=== PATIENT | female | born 1995 | race Caucasian/White ===

== ENCOUNTER 2019-01-15 11:00 | Emergency (ER) | payer MEDICAID, OTHER ==
[~2019-01-15] VITALS: Ht 157.5 cm; Wt 65.8 kg
[2019-01-15 11:08] VITALS: BP 100/67
[2019-01-15 11:10] VITALS: BP 99/62
[2019-01-15] MEDS ORDERED: LACTATED RINGERS 1,000 ML IV ONE (11:11)
[2019-01-15 11:12] VITALS: BP 111/66
--- NOTE | 2019-01-15 11:18 | ED Syncope ---
General Stated Complaint: SYNCOPAL EPISODE; 7 MO PREG. History of Present Illness Date Seen by Provider: Jan 15, 2019 Time Seen by Provider: 11:05 Initial Comments The patient presents to ER by private conveyance EMS from the clinic across the street where she had a syncopal episode while they were drawing blood. Her initial blood pressure was 92 systolic and after her single episode which lasted less than 30 seconds the clinic reported it was about 75 blood pressure. She's had a syncopal episode earlier in the and when she followed up with her OB provider in [place], [place] she was told that it was the opposite of preeclampsia. They Encouraged her to drink more fluids and use Tylenol as necessary. She has a mild headache. She did not fall and strike her head. Otherwise she's had no problems with her . She takes vitamins only. No other medical history. She is a with one miscarriage. EDC is February 21 which puts her at 34 weeks and 5 days. Allergies and Home Medications Allergies Coded Allergies: No Known Drug Allergies (Unverified , 01/15/19) Patient Home Medication List Home Medication List Reviewed: Yes Review of Systems Constitutional: No chills, No dizziness, No fever, No malaise, No weakness EENTM: No ear pain, No blurred vision Respiratory: No cough, No short of breath Cardiovascular: No chest pain, No edema Gastrointestinal: No abdominal pain, No constipation, No diarrhea, No nausea, No vomiting Genitourinary: No discharge, No dysuria : Yes Expected Date of Delivery: Feb 21, 2019 Past [id number] Hx Patient Social History Alcohol Use: Denies Use Recreational Drug Use: No Smoking Status: Never a Smoker Physical Exam Vital Signs Vital Signs - First Documented 01/15/19 11:00 Temp 97.4 Pulse 55 Resp 16 B/P (MAP) 106/79 (88) Pulse Ox 100 O2 Delivery Room Air Capillary Refill : Height, Weight, BMI Height: '" Weight: lbs. oz. kg; BMI Method: General Appearance: No Apparent Distress, WD/WN HEENT: PERRL/EOMI, Pharynx Normal; No Moist Mucous Membranes Neck: Full Range of Motion, Supple Cardiovascular: Regular Rate, Rhythm, No Edema, Normal Peripheral Pulses Respiratory: Lungs Clear, Normal Breath Sounds, No Accessory Muscle Use, No Respiratory Distress Gastrointestinal: Normal Bowel Sounds, Non Tender, Soft Neurologic/Psychiatric: Alert, Oriented x3, No Motor/Sensory Deficits Cranial Nerves: Normal Hearing, Normal Speech, PERRL Progress/Results/Core Measures Results/Orders Lab Results Laboratory Tests Test 01/15/19 11:03 01/15/19 12:30 Range/Units White Blood Count 8.9 4.3-11.0 10^3/uL Red Blood Count 3.32 L 4.35-5.85 10^6/uL Hemoglobin 10.0 L 11.5-16.0 G/DL Hematocrit 30 L 35-52 % Mean Corpuscular Volume 91 80-99 FL Mean Corpuscular Hemoglobin 30 25-34 PG Mean Corpuscular Hemoglobin Concent 33 32-36 G/DL Red Cell Distribution Width 13.0 10.0-14.5 % Platelet Count 233 130-400 10^3/uL Mean Platelet Volume 8.7 7.4-10.4 FL Neutrophils (%) (Auto) 64 42-75 % Lymphocytes (%) (Auto) 26 12-44 % Monocytes (%) (Auto) 9 0-12 % Eosinophils (%) (Auto) 1 0-10 % Basophils (%) (Auto) 0 0-10 % Neutrophils # (Auto) 5.7 1.8-7.8 X 10^3 Lymphocytes # (Auto) 2.3 1.0-4.0 X 10^3 Monocytes # (Auto) 0.8 0.0-1.0 X 10^3 Eosinophils # (Auto) 0.1 0.0-0.3 10^3/uL Basophils # (Auto) 0.0 0.0-0.1 10^3/uL Prothrombin Time 13.3 12.2-14.7 SEC INR Comment 1.0 0.8-1.4 Activated Partial Thromboplast Time 24 24-35 SEC Sodium Level 138 135-145 MMOL/L Potassium Level 3.8 3.6-5.0 MMOL/L Chloride Level 106 98-107 MMOL/L Carbon Dioxide Level 22 21-32 MMOL/L Anion Gap 10 5-14 MMOL/L Blood Urea Nitrogen 7 7-18 MG/DL Creatinine 0.67 0.60-1.30 MG/DL Estimat Glomerular Filtration Rate > 60 BUN/Creatinine Ratio 10 Glucose Level 73 70-105 MG/DL Calcium Level 8.8 8.5-10.1 MG/DL Corrected Calcium 9.1 8.5-10.1 MG/DL Total Bilirubin 0.4 0.1-1.0 MG/DL Aspartate Amino Transf (AST/SGOT) 20 5-34 U/L Alanine Aminotransferase (ALT/SGPT) 8 0-55 U/L Alkaline Phosphatase 130 40-136 U/L Total Protein 6.8 6.4-8.2 GM/DL Albumin 3.6 3.2-4.5 GM/DL Urine Color YELLOW Urine Clarity CLEAR Urine pH 8 5-9 Urine Specific [place] 1.010 L 1.016-1.022 Urine Protein 2+ H NEGATIVE Urine Glucose (UA) NEGATIVE NEGATIVE Urine Ketones NEGATIVE NEGATIVE Urine Nitrite NEGATIVE NEGATIVE Urine Bilirubin NEGATIVE NEGATIVE Urine Urobilinogen NORMAL NORMAL MG/DL Urine Leukocyte Esterase 3+ H NEGATIVE Urine RBC (Auto) NEGATIVE NEGATIVE Urine RBC NONE /HPF Urine WBC 5-10 H /HPF Urine Squamous Epithelial Cells 10-25 H /HPF Urine Crystals NONE /LPF Urine Bacteria FEW H /HPF Urine Casts NONE /LPF Urine Mucus NEGATIVE /LPF Urine Trichomonas FEW H /HPF Urine Culture Indicated YES Urine Opiates Screen NEGATIVE NEGATIVE Urine Oxycodone Screen NEGATIVE NEGATIVE Urine Methadone Screen NEGATIVE NEGATIVE Urine Propoxyphene Screen NEGATIVE NEGATIVE Urine Barbiturates Screen NEGATIVE NEGATIVE Ur Tricyclic Antidepressants Screen NEGATIVE NEGATIVE Urine Phencyclidine Screen NEGATIVE NEGATIVE Urine Amphetamines Screen NEGATIVE NEGATIVE Urine Methamphetamines Screen NEGATIVE NEGATIVE Urine Benzodiazepines Screen NEGATIVE NEGATIVE Urine Cocaine Screen NEGATIVE NEGATIVE Urine Cannabinoids Screen NEGATIVE NEGATIVE My Orders Orders - CECILIO,TRAV J Cbc With Automated Diff (01/15/19 11:10) Comprehensive Metabolic Panel (01/15/19 11:10) Drug Screen Stat (Urine) (01/15/19 11:10) Protime With Inr (01/15/19 11:10) Partial Thromboplastin Time (01/15/19 11:10) Ua Culture If Indicated (01/15/19 11:10) Orthostatic Vital Signs (Adult (01/15/19 11:10) Saline Lock/Iv-Start (01/15/19 11:11) Lactated Ringers (Lr 1000 Ml Iv Solution (01/15/19 11:11) Acetaminophen Tablet (Tylenol Tablet) (01/15/19 11:30) Urine Culture (01/15/19 12:30) Metronidazole Tablet (Flagyl Tablet) (01/15/19 13:45) Medications Given in ED Current Medications Medications Dose Ordered Sig/Shae Route Start Time Stop Time Status Last Admin Dose Admin Acetaminophen 1,000 mg ONCE ONCE PO 01/15/19 11:30 01/15/19 11:31 DC 01/15/19 11:36 1,000 MG Lactated Ringer's 1,000 ml @ 0 mls/hr Q0M ONCE IV 01/15/19 11:11 01/15/19 11:13 DC 01/15/19 11:36 0 MLS/HR Vital Signs/I&O 01/15/19 01/15/19 01/15/19 01/15/19 11:00 11:08 11:10 11:12 Temp 97.4 Pulse 55 96 83 81 Resp 16 B/P (MAP) 106/79 (88) 100/67 (78) 99/62 (74) 111/66 (81) Pulse Ox 100 O2 Delivery Room Air Progress Progress Note #1: Time: 12:38 Progress Note Orthostatics were negative. The patient's received her fluid bolus and not having any nausea or pain. She's producing a urine specimen. She does have quite a long history of syncopal episodes usually related to stress or having a blood drawn or an IV started. If we don't find any other source in her urine and we are going to allow her to follow up outpatient with her OB provider. heart tones 120, she was feeling a lot of movement at the beginning but now the fetus has settled down. Progress Note #2: Time: 13:43 Progress Note Flagyl 2 g 1. We get her partner prescription to her partner Ceferino who was present. We'll encourage her to follow up with her OB. She's feeling much better and ready to go home and get something to eat. Departure Impression Primary Impression: Syncope Qualified Codes: R55 - Syncope and collapse Additional Impressions: Dehydration, mild Trichomonas vaginalis (TV) infection Qualified Codes: Z3A.35 - 35 weeks gestation of Disposition: 01 HOME, SELF-CARE Condition: Improved Departure-Patient Inst. Decision time for Depature: 13:30 Patient Instructions: Syncope (Fainting) (DC), Trichomoniasis (DC) Add. Discharge Instructions: Drink plenty of fluids. Use Tylenol for headache. Follow-up with your OB provider in the next 1-2 weeks. If your urine culture comes back positive we will set her up with an antibiotic by calling you and calling out the antibiotic to your pharmacy. We will provide a prescription of antibiotics for your partner; take all 4 tablets at once. Practice pelvic rest until you see your OB provider. TRAV HERNANDES Jan 15, 2019 11:18
[2019-01-15 11:19] LABS: BASOPHILS % (AUTO) 0 % (0-10); EOSINOPHILS # (AUTO) 0.1 10^3/uL (0.0-0.3); EOSINOPHILS % (AUTO) 1 % (0-10); HEMATOCRIT 30 % (35-52); LYMPHOCYTES # (AUTO) 2.3 X 10^3 (1.0-4.0); LYMPHOCYTES % (AUTO) 26 % (12-44); MEAN CORPUSCULAR HEMOGLOBIN 30 PG (25-34); MEAN CORPUSCULAR HGB CONC 33 G/DL (32-36); MEAN CORPUSCULAR VOLUME 91 FL (80-99); MEAN PLATELET VOLUME 8.7 FL (7.4-10.4); MONOCYTES # (AUTO) 0.8 X 10^3 (0.0-1.0); MONOCYTES % (AUTO) 9 % (0-12); NEUTROPHILS # (AUTO) 5.7 X 10^3 (1.8-7.8); NEUTROPHILS % (AUTO) 64 % (42-75); PLATELET COUNT 233 10^3/uL (130-400); WHITE BLOOD COUNT 8.9 10^3/uL (4.3-11.0)
[2019-01-15 11:29] LABS: PROTHROMBIN TIME PATIENT 13.3 SEC (12.2-14.7)
[2019-01-15] MEDS ORDERED: ACETAMINOPHEN 500 MG TAB (TYLENOL) PO ONE (11:30)
[2019-01-15 11:31] LABS: ALANINE AMINOTRANSFERASE 8 U/L (0-55); ALBUMIN 3.6 GM/DL (3.2-4.5); ALKALINE PHOSPHATASE 130 U/L (40-136); BILIRUBIN,TOTAL 0.4 MG/DL (0.1-1.0); BUN/CREATININE RATIO 10; CALCIUM 8.8 MG/DL (8.5-10.1); CARBON DIOXIDE 22 MMOL/L (21-32); CHLORIDE 106 MMOL/L (98-107); CREATININE SERUM 0.67 MG/DL (0.60-1.30); GFR ESTIMATED > 60; GLUCOSE 73 MG/DL (70-105); POTASSIUM 3.8 MMOL/L (3.6-5.0); SODIUM 138 MMOL/L (135-145); TOTAL PROTEIN 6.8 GM/DL (6.4-8.2)
[2019-01-15 12:35] LABS: BILIRUBIN,URINE NEGATIVE (NEGATIVE); CLARITY,URINE CLEAR; COLOR,URINE YELLOW; GLUCOSE, URINE (UA) NEGATIVE (NEGATIVE); KETONES,URINE NEGATIVE (NEGATIVE); LEUKOCYTE ESTERASE ,URINE 3+ (NEGATIVE); NITRITE,URINE NEGATIVE (NEGATIVE); PH,URINE 8 (5-9); PROTEIN,URINE 2+ (NEGATIVE); UROBILINOGEN,URINE NORMAL (NORMAL)
[2019-01-15 12:44] LABS: BACTERIA,URINE FEW /HPF
[2019-01-15 12:45] LABS: TRICHOMONAS,URINE FEW /HPF
[2019-01-15 12:47] LABS: AMPHETAMINE SCREEN, URINE NEGATIVE (NEGATIVE); BARBITURATE SCREEN URINE NEGATIVE (NEGATIVE); BENZODIAZEPINES SCREEN URINE NEGATIVE (NEGATIVE); CANNABINOID SCREEN, URINE NEGATIVE (NEGATIVE); COCAINE SCREEN URINE NEGATIVE (NEGATIVE); METHADONE STAT NEGATIVE (NEGATIVE); METHAMPHETAMINE SCREEN URINE S NEGATIVE (NEGATIVE); OPIATE SCREEN URINE NEGATIVE (NEGATIVE); OXYCODONE STAT NEGATIVE (NEGATIVE); PROPOXYPHENE STAT NEGATIVE (NEGATIVE); TRICYCLIC ANTIDEPRESSANTS SCRE NEGATIVE (NEGATIVE)
--- NOTE | 2019-01-15 13:00 | NUR ---
PT AMB TO RESTROOM W/O DIFFICULTY. STAND BY ASSIST FROM ED STAFF.
[2019-01-15] MEDS ORDERED: metroNIDAZOLE 500 MG (FLAGYL) TAB PO ONE (13:45)
[2019-01-15 13:50] VITALS: BP 104/59
== END 2019-01-15 13:50 | disposition home or self-care (01) ==
LOC: ER 11:02
DX: O26.893 Other specified pregnancy related conditions, third trimester (principal); R55 Syncope and collapse; O99.283 Endocrine, nutritional and metabolic diseases complicating pregnancy, third trimester; E86.0 Dehydration; O98.313 Other infections with a predominantly sexual mode of transmission complicating pregnancy, third trimester; A59.01 Trichomonal vulvovaginitis; Z3A.34 34 weeks gestation of pregnancy
CPT/HCPCS: 36415; 80053; 80306; 81000; 85025; 85610; 85730; 87088; 93005

== ENCOUNTER → 2019-01-25 | Outpatient (CLI) | payer MEDICAID ==
[2019-01-25 12:08] LABS: HEMOGLOBIN 10.2 G/DL (11.5-16.0); MEAN PLATELET VOLUME 8.3 FL (7.4-10.4); RED CELL DISTRIBUTION WIDTH 12.8 % (10.0-14.5); WHITE BLOOD COUNT 9.6 10^3/uL (4.3-11.0)
[2019-01-25 12:27] LABS: ALANINE AMINOTRANSFERASE 12 U/L (0-55); ALBUMIN 3.8 GM/DL (3.2-4.5); ALKALINE PHOSPHATASE 158 U/L (40-136); BILIRUBIN,TOTAL 0.6 MG/DL (0.1-1.0); BUN/CREATININE RATIO 10; CARBON DIOXIDE 23 MMOL/L (21-32); CHLORIDE 106 MMOL/L (98-107); CREATININE SERUM 0.63 MG/DL (0.60-1.30); GFR ESTIMATED > 60; GLUCOSE 66 MG/DL (70-105); POTASSIUM 3.6 MMOL/L (3.6-5.0); SODIUM 137 MMOL/L (135-145); TOTAL PROTEIN 7.2 GM/DL (6.4-8.2)
[2019-01-26 06:46] LABS: HEPATITIS C ANTIBODY C Non-Reactive (Non-Reactive)
== END ==
LOC: LAB 11:37
PROVIDERS: ATTEND Nurse Practitioner Family
DX: Z34.83 Encounter for supervision of other normal pregnancy, third trimester (principal)
CPT/HCPCS: 36415; 80053; 82951; 85027; 86592; 86703; 86803; 86850; 86900; 86901; 87340

== ENCOUNTER 2019-07-12 12:24 | Outpatient (RCR) | payer SELFPAY | END 2019-10-10 | disposition home or self-care (01) | LOC: LAB 12:24 | PROVIDERS: ATTEND Pediatrics | DX: K62.5 Hemorrhage of anus and rectum (principal) ==